=== PATIENT | female | born 1935 | race Hispanic/Latino ===

== ENCOUNTER 2018-11-17 07:58 | Outpatient (CLI) | payer MEDICARE | END 2018-11-17 07:59 | disposition home or self-care (01) | LOC: LAB 07:58 ==

== ENCOUNTER 2018-12-27 09:14 | Day surgery (SDC) | payer MEDICARE ==
[2018-12-22 12:01] VITALS: BMI 15.3
[2018-12-27 09:59] VITALS: TEMP 98.2
[2018-12-27] MEDS ORDERED: Propofol 10 mg/ml Inj (20 ML) ONE (11:16)
[2018-12-27] MEDS ORDERED: Lidocaine 1% Inj (20ml) ONE ×2 (11:16→13:52)
[2018-12-27] MEDS ORDERED: Etomidate 20 mg/10ml Inj IV ONE ×2 (11:16→13:56)
[2018-12-27 14:12] VITALS: O2SAT 98
[2018-12-27] MEDS ORDERED: Sodium Chloride 0.9% 1,000 ML IV SCH (14:15)
[2018-12-27 14:45] VITALS: BP 168/72; PULSE 71; RESP 15
== END 2018-12-27 16:39 | disposition home or self-care (01) ==
LOC: ENDO 09:14
PROVIDERS: ATTEND Internal Medicine Gastroenterology
DX: K22.2 Esophageal obstruction (principal); K29.70 Gastritis, unspecified, without bleeding; R13.10 Dysphagia, unspecified; I10 Essential (primary) hypertension
CPT/HCPCS: 43235; J2704; J7030; J7040

== ENCOUNTER 2019-01-03 07:24 | Outpatient (CLI) | payer MEDICARE, OTHER | END 2019-01-03 07:25 | disposition home or self-care (01) | LOC: RAD 07:24 ==